=== PATIENT | female | born 1935 | race Caucasian/White ===

== ENCOUNTER 2016-09-26 10:26 | Observation (INO) | payer MEDICARE, OTHER ==
[2016-09-25 11:06] VITALS: BP 149/57
[2016-09-25 11:45] LABS: HEMOGLOBIN 13.1 g/dL (11.7-16.4)
[2016-09-25 11:57] LABS: ASPARTATE AMINO TRANSFERASE 10 U/L (15-37); BLOOD UREA NITROGEN 15 mg/dL (7-18)
[~2016-09-26] VITALS: Ht 165.1 cm; Wt 70.1 kg
[~2016-09-26 10:26] MED LIST: AMLO5TAB2 PO; DABI150C PO; METO25TA35 PO; OMEP40CA6 PO; OXYB10TA PO
[2016-09-26] MEDS ORDERED: FLUT9.9S PO (11:00)
[2016-09-26] MEDS ORDERED: ACYC-57 PO (11:00)
[2016-09-26] MEDS ORDERED: CHOL500015 PO (11:00)
[2016-09-26] MEDS ORDERED: ZOLP-413 PO (11:00)
[2016-09-26] MEDS ORDERED: MIDAZOLAM 1 MG/ML, 5ML ONE (11:46)
[2016-09-26] MEDS ORDERED: LIDOCAINE 2%, 20ML ONE ×2 (11:46→12:07)
[2016-09-26] MEDS ORDERED: FENTANYL PF 100 MCG/2ML ONE (11:47)
[2016-09-26] MEDS ORDERED: CEFAZOLIN PMX 1GM/50ML 50 ML ONE (11:47)
[2016-09-26] MEDS ORDERED: CEFAZOLIN 1,000 MG ONE (11:47)
[2016-09-26] MEDS ORDERED: HYDROcodone/APAP 5/325 TABLET PO PRN (12:30)
[2016-09-26] MEDS ORDERED: ZOLPIDEM 5MG TABLET PO PRN (12:30)
[2016-09-26 13:10] VITALS: BP 113/50
[2016-09-26] MEDS: SODIUM CHLORIDE 0.9% 1,000 ML IV SCH (14:01)
[2016-09-26 15:23] VITALS: BP 121/60
[2016-09-26] MEDS: CEFAZOLIN PMX 1GM/50ML 50 ML IVPB SCH (20:56)
[2016-09-26] MEDS: CHOLECALCIFEROL 1,000 UNIT TABLET PO SCH (20:58)
[2016-09-26] MEDS ORDERED: ZOLPIDEM 10MG TABLET PO SCH (21:00)
[2016-09-26] MEDS: SODIUM CHLORIDE FLUSH 10ML SYR IVF SCH (21:03)
[2016-09-26 21:15] VITALS: BP 130/65
[2016-09-27] MEDS: SODIUM CHLORIDE 0.9% 1,000 ML IV SCH ×2 (01:50→09:25)
[2016-09-27 04:00] VITALS: BP 133/73
[2016-09-27] MEDS: CEFAZOLIN PMX 1GM/50ML 50 ML IVPB SCH ×2 (04:51→11:26)
[2016-09-27 06:55] VITALS: BP 120/64
[2016-09-27] MEDS ORDERED: OMEPRAZOLE 20 MG CAPSULE.DR PO SCH (07:30)
[2016-09-27] MEDS ORDERED: HYDR-3240 PO (08:28)
[2016-09-27] MEDS ORDERED: AMLODIPINE 5 MG TABLET PO SCH (09:00)
[2016-09-27] MEDS ORDERED: OXYBUTYNIN CHLORIDE 5 MG TABLET PO SCH (09:00)
[2016-09-27] MEDS ORDERED: FLUTICASONE NASAL SPRAY 16GM NAS SCH (09:00)
[2016-09-27] MEDS ORDERED: METOPROLOL TARTRATE 25 MG TABLET PO SCH (09:00)
[2016-09-27] MEDS: CHOLECALCIFEROL 1,000 UNIT TABLET PO SCH (09:29)
[2016-09-27] MEDS: SODIUM CHLORIDE FLUSH 10ML SYR IVF SCH (09:29)
== END 2016-09-27 14:34 | disposition home or self-care (01) ==
LOC: CACL 10:26 → ORIP 12:10 → 5SO 13:28
PROVIDERS: ADMIT Internal Medicine Cardiovascular Disease; ATTEND Internal Medicine Cardiovascular Disease
DX: I49.5 Sick sinus syndrome (principal); I44.1 Atrioventricular block, second degree; I48.0 Paroxysmal atrial fibrillation; G47.30 Sleep apnea, unspecified; I11.0 Hypertensive heart disease with heart failure; I50.9 Heart failure, unspecified; Z79.01 Long term (current) use of anticoagulants
CPT/HCPCS: 33208; 36415; 71010; 71020; 80053; 85025; 85610; 93005; 96365; 96375; C1779; C1785; C1892; G0378; J0690; J2250; J3010; J3490; J7030

== ENCOUNTER 2018-01-22 11:53 | Emergency (ER) | payer MEDICARE, OTHER ==
[~2018-01-22] VITALS: Ht 167.6 cm; Wt 70.1 kg
[~2018-01-22 11:53] MED LIST changes: +ACYC-57 PO; +CHOL500015 PO; +FLUT9.9S PO; +HYDR-3240 PO; +ZOLP-413 PO
[2018-01-22 12:22] LABS: BASOPHILS # (AUTO) 0.04 x10^3/uL (0-0.1); BASOPHILS % (AUTO) 1 % (0-1); EOSINOPHILS # (AUTO) 0.22 x10^3/uL (0-0.4); EOSINOPHILS % (AUTO) 3 % (1-7); LYMPHOCYTES # (AUTO) 3.24 x10^3/uL (1-3.4); LYMPHOCYTES % (AUTO) 40 % (22-44); MD NO; MEAN CORPUSCULAR HGB CONC 33.4 g/dL (32.4-35.8); MEAN CORPUSCULAR VOLUME 92.8 fL (80-100); MEAN PLATELET VOLUME 7.8 fL (7.4-10.4); MONOCYTES # (AUTO) 0.81 x10^3/uL (0.2-0.8); MONOCYTES % (AUTO) 10 % (2-9); NEUTROPHILS # (AUTO) 3.77 x10^3/uL (1.8-6.8); NEUTROPHILS % (AUTO) 47 % (42-75); PLATELET COUNT 221 x10^3/uL (130-400); RED BLOOD COUNT 4.79 x10^6/uL (3.82-5.3)
[2018-01-22] MEDS ORDERED: SODIUM CHLORIDE FLUSH 10ML SYR IVF ONE (12:30)
[2018-01-22 12:34] LABS: ALANINE AMINOTRANSFERASE 18 U/L (12-78); ANION GAP 8 mmol/L (5-15); CALCIUM 9.9 mg/dL (8.5-10.1); CHLORIDE 109 mmol/L (98-107); CREATININE 0.87 mg/dL (0.55-1.02)
[2018-01-22] MEDS ORDERED: TROS60CA3 PO (12:35)
[2018-01-22] MEDS ORDERED: EVOL140P SC (12:35)
[2018-01-22] MEDS ORDERED: ROSU5TAB PO (12:35)
[2018-01-22 12:40] LABS: ALKALINE PHOSPHATASE 66 U/L (45-117); BILIRUBIN,TOTAL 0.8 mg/dL (0.2-1.0); TOTAL PROTEIN 7.9 g/dL (6.4-8.2); TROPONIN I < 0.015 ng/mL (0.000-0.045)
[2018-01-22 12:51] LABS: MICROSCOPIC AUTO
[2018-01-22 12:52] LABS: CULTURE INDICATED? NO
[2018-01-22 13:20] VITALS: BP 136/87
== END 2018-01-22 13:59 | disposition home or self-care (01) ==
LOC: ED 12:33
DX: R53.1 Weakness (principal); I48.2 Chronic atrial fibrillation; Z79.01 Long term (current) use of anticoagulants
CPT/HCPCS: 36415; 71045; 80053; 81001; 83690; 83735; 84443; 84484; 85025; 93005; 99285

== ENCOUNTER 2018-05-23 08:19 | Day surgery (SDC) | payer MEDICARE, OTHER ==
[~2018-05-23 08:19] MED LIST changes: +AMIO200T42 PO; -AMLO5TAB2 PO; +AMLO5TAB7 PO; +APIX5TAB PO; +CARV12.5 PO; +CARV6.2512 PO; +EVOL140P SC; +FURO-93 PO; +OMEG-14 PO; +POTA10TA11 PO; +ROSU5TAB PO; +TROS60CA3 PO; +ZOLP5TAB PO; +[UNRECOGNIZED DRUG - OTHER]; +[UNRECOGNIZED DRUG - REMARK] PO
[2018-05-23 08:38] VITALS: BP 146/79
[2018-05-23] MEDS ORDERED: DRON400T PO (08:57)
[2018-05-23] MEDS ORDERED: SOLI5TAB2 PO (08:59)
[2018-05-23 09:35] LABS: ANION GAP 7 mmol/L (5-15); CALCIUM 9.6 mg/dL (8.5-10.1); CHLORIDE 110 mmol/L (98-107); CREATININE 1.22 mg/dL (0.55-1.02)
[2018-05-23] MEDS ORDERED: APIXABAN 5 MG TABLET PO SCH (12:30)
[2018-05-23] MEDS ORDERED: PROPOFOL 10 MG/ML, 20ML ONE (15:18)
== END 2018-05-23 13:30 | disposition home or self-care (01) ==
LOC: CACL 08:19
PROVIDERS: ATTEND Internal Medicine Cardiovascular Disease
DX: I48.91 Unspecified atrial fibrillation (principal); I48.92 Unspecified atrial flutter; E78.5 Hyperlipidemia, unspecified; G47.30 Sleep apnea, unspecified; I10 Essential (primary) hypertension; E11.9 Type 2 diabetes mellitus without complications; Z95.0 Presence of cardiac pacemaker; Z79.899 Other long term (current) drug therapy; Z91.013 Allergy to seafood; Z88.8 Allergy status to other drugs, medicaments and biological substances
CPT/HCPCS: 36415; 80048; 92960; J2704

== ENCOUNTER 2018-06-27 09:36 | Observation (INO) | payer MEDICARE, OTHER ==
[2018-06-26 10:58] LABS: BASOPHILS # (AUTO) 0.04 x10^3/uL (0-0.1); BASOPHILS % (AUTO) 1 % (0-1); EOSINOPHILS % (AUTO) 3 % (1-7); LYMPHOCYTES # (AUTO) 1.98 x10^3/uL (1-3.4); LYMPHOCYTES % (AUTO) 31 % (22-44); MD NO; MEAN CORPUSCULAR HEMOGLOBIN 32.1 pg (27.0-34.8); MEAN CORPUSCULAR HGB CONC 33.9 g/dL (32.4-35.8); MEAN CORPUSCULAR VOLUME 94.6 fL (80-100); MEAN PLATELET VOLUME 8.8 fL (7.4-10.4); MONOCYTES # (AUTO) 0.54 x10^3/uL (0.2-0.8); MONOCYTES % (AUTO) 9 % (2-9); NEUTROPHILS # (AUTO) 3.58 x10^3/uL (1.8-6.8); NEUTROPHILS % (AUTO) 57 % (42-75); PLATELET COUNT 212 x10^3/uL (130-400); RED BLOOD COUNT 4.55 x10^6/uL (3.82-5.3); RED CELL DISTRIBUTION WIDTH 13.4 % (9.6-15.2)
[2018-06-26 11:08] LABS: ANION GAP 10 mmol/L (5-15); CALCIUM 9.2 mg/dL (8.5-10.1); CHLORIDE 111 mmol/L (98-107); CREATININE 1.07 mg/dL (0.55-1.02)
[~2018-06-27] VITALS: Ht 165.1 cm; Wt 73.9 kg
[~2018-06-27 09:36] MED LIST changes: +AMLO-150 PO; -AMLO5TAB7 PO; +DRON400T PO; +SOLI5TAB2 PO
[2018-06-27] MEDS ORDERED: SODIUM CHLORIDE 0.9% 1,000 ML IV SCH (10:09)
[2018-06-27] MEDS ORDERED: POTA20PA31 PO (10:15)
[2018-06-27] MEDS ORDERED: FURO-93 PO (10:15)
[2018-06-27] MEDS ORDERED: CARV6.2512 PO (10:15)
[2018-06-27] MEDS ORDERED: PLEASE ENTER HEIGHT AND WEIGHT MC SCH (11:00)
[2018-06-27] MEDS ORDERED: FENTANYL PF 100 MCG/2ML ONE (11:39)
[2018-06-27] MEDS ORDERED: MIDAZOLAM 1 MG/ML, 5ML ONE (11:39)
[2018-06-27] MEDS ORDERED: ZOLPIDEM 5MG TABLET PO PRN (13:30)
[2018-06-27] MEDS ORDERED: ACETAMINOPHEN 325 MG TABLET PO PRN (13:30)
[2018-06-27] MEDS ORDERED: ACYCLOVIR 400 MG TABLET PO PRN (13:30)
[2018-06-27 20:34] VITALS: BP 151/88
[2018-06-27] MEDS: APIXABAN 5 MG TABLET PO SCH (20:35)
[2018-06-27] MEDS: CARVEDILOL 6.25 MG TABLET PO SCH (20:35)
[2018-06-27] MEDS ORDERED: ZOLPIDEM 10MG TABLET PO SCH (21:00)
[2018-06-28 01:15] VITALS: BP 138/87
[2018-06-28 06:47] VITALS: BP 141/86
[2018-06-28] MEDS ORDERED: ACET325T14 PO (08:16)
[2018-06-28] MEDS: CARVEDILOL 6.25 MG TABLET PO SCH (08:56)
[2018-06-28] MEDS: APIXABAN 5 MG TABLET PO SCH (08:56)
[2018-06-28] MEDS ORDERED: POTASSIUM CHLORIDE 10 MEQ TABLET.ER PO SCH (09:00)
[2018-06-28] MEDS ORDERED: OXYBUTYNIN CHLORIDE 5 MG TABLET PO SCH (09:00)
[2018-06-28] MEDS ORDERED: OMEPRAZOLE 20 MG CAPSULE.DR PO SCH (09:00)
[2018-06-28] MEDS ORDERED: FUROSEMIDE 20 MG TABLET PO SCH (09:00)
[2018-07-10] MEDS ORDERED: EVOLOCUMAB 140 MG SC SCH (09:00)
== END 2018-06-28 09:43 | disposition home or self-care (01) ==
LOC: CACL 09:36 → ORIP 13:12 → 5SO 13:55 → DCLOUNGE 06-28 09:30
PROVIDERS: ADMIT Internal Medicine Cardiovascular Disease; ATTEND Internal Medicine Cardiovascular Disease
DX: I48.91 Unspecified atrial fibrillation (principal); I44.2 Atrioventricular block, complete; Z95.0 Presence of cardiac pacemaker
CPT/HCPCS: 36415; 71046; 80048; 85025; 93650; 99156; C1894; C2630; G0378; J2250; J3010

== ENCOUNTER → 2018-11-13 | Outpatient (CLI) | payer MEDICARE, OTHER ==
[~2018-11-13] MED LIST changes: +ACET325T14 PO; +POTA20PA31 PO
== END | disposition home or self-care (01) ==
LOC: CFH 14:33
PROVIDERS: ATTEND Nurse Practitioner Primary Care
DX: I51.7 Cardiomegaly (principal); R06.02 Shortness of breath
CPT/HCPCS: 71046

== ENCOUNTER 2019-01-29 07:34 | Outpatient (CLI) | payer MEDICARE, OTHER | END 2019-01-29 23:59 | disposition home or self-care (01) | LOC: CVU 07:34 | PROVIDERS: ATTEND Nurse Practitioner Primary Care | DX: I08.8 Other rheumatic multiple valve diseases (principal) | CPT/HCPCS: 93306 ==

== ENCOUNTER 2019-08-01 08:22 | Outpatient (CLI) | payer MEDICARE, OTHER ==
[~2019-08-01 08:22] MED LIST changes: +OMEP40CA42 PO; -OMEP40CA6 PO; -OXYB10TA PO; +OXYB10TA2 PO; +REGADENOSON 0.4 MG/5 ML SYRINGE ONE
== END 2019-08-01 23:59 | disposition home or self-care (01) ==
LOC: CFH 08:22
PROVIDERS: ATTEND Physician Assistant Medical
DX: I25.5 Ischemic cardiomyopathy (principal); I47.2 Ventricular tachycardia
CPT/HCPCS: 78452; 93017; A9502; J2785

== ENCOUNTER 2020-02-18 09:45 | Outpatient (CLI) | payer MEDICARE, OTHER ==
[~2020-02-18 09:45] MED LIST changes: +ACET325T26 PO; +ALIR75PE SC; +ASPI81TA45 PO; +CLOP75TA PO; -EVOL140P SC; +EVOL140P3 SC; +LINA5TAB PO; -OXYB10TA2 PO; +OXYB10TA26 PO; -REGADENOSON 0.4 MG/5 ML SYRINGE ONE; +TOLT2TAB16 PO
== END 2020-02-18 23:59 | disposition home or self-care (01) ==
LOC: CVU 09:45
PROVIDERS: ATTEND Physician Assistant Medical
DX: I08.3 Combined rheumatic disorders of mitral, aortic and tricuspid valves (principal); R06.02 Shortness of breath; I25.10 Atherosclerotic heart disease of native coronary artery without angina pectoris
CPT/HCPCS: 93306; 94060; 94726; 94729

== ENCOUNTER → 2020-05-25 | Outpatient (CLI) | payer MEDICARE, OTHER ==
[2020-05-25 16:53] LABS: BASOPHILS % (AUTO) 1 % (0-1); EOSINOPHILS % (AUTO) 5 % (1-7); LYMPHOCYTES % (AUTO) 27 % (22-44); MEAN CORPUSCULAR HEMOGLOBIN 31.6 pg (27.0-34.8); MEAN CORPUSCULAR HGB CONC 33.3 g/dL (32.4-35.8); MEAN PLATELET VOLUME 8.7 fL (7.4-10.4); MONOCYTES % (AUTO) 8 % (2-9); NEUTROPHILS % (AUTO) 60 % (42-75); PLATELET COUNT 175 x10^3/uL (130-400); RED BLOOD COUNT 4.32 x10^6/uL (3.82-5.3); RED CELL DISTRIBUTION WIDTH 13.4 % (9.6-15.2)
[2020-05-25 16:56] LABS: MD NO
[2020-05-25 17:00] LABS: MICROSCOPIC AUTO
[2020-05-25 17:08] LABS: ALANINE AMINOTRANSFERASE 13 U/L (12-78); ALBUMIN 3.8 g/dL (3.4-5.0); ANION GAP 4 mmol/L (5-15); CALCIUM 9.6 mg/dL (8.5-10.1); CHLORIDE 108 mmol/L (98-107); CREATININE 1.32 mg/dL (0.55-1.02)
[2020-05-25 17:12] LABS: ALKALINE PHOSPHATASE 72 U/L (45-117); BILIRUBIN,TOTAL 0.7 mg/dL (0.2-1.0); TOTAL PROTEIN 7.3 g/dL (6.4-8.2); TROPONIN I < 0.015 ng/mL (0.000-0.045)
== END | disposition home or self-care (01) ==
LOC: LAB 16:23
PROVIDERS: ATTEND Internal Medicine
DX: I10 Essential (primary) hypertension (principal); I25.10 Atherosclerotic heart disease of native coronary artery without angina pectoris; K44.0 Diaphragmatic hernia with obstruction, without gangrene; E78.2 Mixed hyperlipidemia; E55.9 Vitamin D deficiency, unspecified; E11.65 Type 2 diabetes mellitus with hyperglycemia; R79.9 Abnormal finding of blood chemistry, unspecified; I48.91 Unspecified atrial fibrillation; R01.1 Cardiac murmur, unspecified; R60.9 Edema, unspecified; H92.01 Otalgia, right ear; F51.01 Primary insomnia
CPT/HCPCS: 36415; 80053; 81001; 83036; 83690; 84484; 85025

== ENCOUNTER → 2020-06-02 | Outpatient (CLI) | payer MEDICARE, OTHER ==
[~2020-06-02] MED LIST changes: +OMNIPAQUE 350 MG/ML, 100ML BOTTLE ONE
== END | disposition home or self-care (01) ==
LOC: CFH 11:15
PROVIDERS: ATTEND Internal Medicine
DX: K44.9 Diaphragmatic hernia without obstruction or gangrene (principal); K76.89 Other specified diseases of liver; I51.7 Cardiomegaly
CPT/HCPCS: 71260; 74177; Q9967

== ENCOUNTER → 2020-08-27 | Outpatient (CLI) | payer MEDICARE, OTHER ==
[~2020-08-27] MED LIST changes: +HYDR-1067 PO; -HYDR-3240 PO; -OMNIPAQUE 350 MG/ML, 100ML BOTTLE ONE; +REGADENOSON 0.4 MG/5 ML SYRINGE ONE
== END | disposition home or self-care (01) ==
LOC: RAD 10:14
PROVIDERS: ATTEND Nurse Practitioner Family
DX: R06.02 Shortness of breath (principal); I42.9 Cardiomyopathy, unspecified; I25.10 Atherosclerotic heart disease of native coronary artery without angina pectoris
CPT/HCPCS: 78452; 93017; A9502; J2785

== ENCOUNTER → 2020-09-15 | Outpatient (CLI) | payer MEDICARE, OTHER ==
[~2020-09-15] MED LIST changes: -REGADENOSON 0.4 MG/5 ML SYRINGE ONE
== END | disposition home or self-care (01) ==
LOC: CVU 12:37
PROVIDERS: ATTEND Nurse Practitioner Family
DX: I08.3 Combined rheumatic disorders of mitral, aortic and tricuspid valves (principal); I65.23 Occlusion and stenosis of bilateral carotid arteries; I48.0 Paroxysmal atrial fibrillation
CPT/HCPCS: 93306; 93880